=== PATIENT | female | born 1930 | race Caucasian/White ===

== ENCOUNTER 2016-12-30 10:32 | Emergency (ER) | payer MEDICARE, OTHER, MEDICAID ==
[2016-12-30 11:03] LABS: #Lymphocytes 0.5 thou/uL (1.20-3.40); #Monocytes 0.3 thou/uL (0.11-0.59); %Basophils 1.2 % (0.0-1.0); %Eosinophils 0.4 % (0.0-10.0); %Lymphocytes 12.1 % (21.0-51.0); %Monocytes 8.6 % (0.0-10.0); %Neutrophils 77.7 % (42.0-75.0); Hemoglobin 14.4 g/dL (12.0-16.0); Mean Corpuscular HGB CONC 33.3 g/dL (32.0-36.0); Mean Corpuscular Hemoglobin 33.6 pg (27.0-31.0); Mean Platelet Volume 8.2 fL (7.4-10.4); Platelet Count 194 thou/uL (130-400); RBC Distribution Width 12.4 % (11.5-14.5); Red Blood Cell (RBC) Count 4.28 mill/uL (4.20-5.40); White Blood Cell (WBC) Count 3.9 thou/uL (4.8-10.8)
[2016-12-30 11:07] LABS: INR-International Normal Ratio 1.1; PTT 33.7 SEC (22.9-36.1); Prothrombin Time 14.1 SEC (12.0-14.7)
[2016-12-30 11:15] LABS: ALT (SGPT) 21 U/L (8-55); AST (SGOT) 28 U/L (5-34); Albumin 4.5 g/dL (3.4-4.8); Alkaline Phosphatase 52 U/L (40-150); Anion Gap 18 mmol/L (10-20); BUN (Urea Nitrogen) 19 mg/dL (9.8-20.1); Bilirubin, Total 0.9 mg/dL (0.2-1.2); CK (CPK) 54 U/L (29-168); Calc. Creatinine Clearance 0 mL/min (70-130); Calcium 10.1 mg/dL (7.8-10.44); Carbon Dioxide 27 mmol/L (23-31); Chloride 100 mmol/L (98-107); Estimated GFR-MDRD 44; Globulin 3.1 g/dL (2.4-3.5); Glucose 119 mg/dL (83-110); Lipase 9 U/L (8-78); Potassium 4.2 mmol/L (3.5-5.1); Protein, Total 7.6 g/dL (6.0-8.3); Sodium 141 mmol/L (136-145)
[2016-12-30 11:28] LABS: Blood, Urine Negative (Negative); Clarity Slightly Cloudy (Clear); Glucose, Urine (Dipstick) Negative (Negative); Leukocyte Negative (Negative); Nitrite Negative (Negative); Protein, Urine (Dipstick) 100 mg/dL (Neg-Trace); Specific Gravity, Urine 1.025 (1.005-1.030)
[2016-12-30 11:30] LABS: Bilirubin Negative (Negative)
[2016-12-30 11:39] LABS: Bacteria/HPF 1+ HPF (None Seen); Crystals/HPF 1+ AMORPH PHOS HPF (Negative); RBC/HPF None Seen HPF (0-3); Squamous Epithelial 0-3 HPF (0-3); WBC/HPF 0-3 HPF (0-3)
[2016-12-30 13:37] LABS: Troponin I Less than 0.010 ng/mL (< 0.028)
--- NOTE | 2016-12-30 21:23 | RAD ---
PORTABLE CHEST: Date: 12-30-16 An AP portable film at 1048 is compared with a 12-02-16 study. FINDINGS: The heart is normal in size. There is no vascular congestion, edema, or pleural effusion. An area of slightly increased density just above and lateral to the right hilum is thought to be due to overla pping of lung markings and rib. There was nothing in this location last month. The trachea deviates slightly towards to the right due to the calcified aortic arch. The arch does not appear particularl y large. There is deformity and superior subluxation of the right humeral head, a chronic finding in this patient. Similar changes appear to be present on the left as well. IMPRESSION: Chronic changes but no acute finding. POS: HOME
== END 2016-12-30 14:07 | disposition home or self-care (01) ==
LOC: BURERS 10:32
DX: E86.0 Dehydration (principal); R11.2 Nausea with vomiting, unspecified; M06.9 Rheumatoid arthritis, unspecified; J44.9 Chronic obstructive pulmonary disease, unspecified; E78.5 Hyperlipidemia, unspecified; E78.00 Pure hypercholesterolemia, unspecified; I10 Essential (primary) hypertension; I35.0 Nonrheumatic aortic (valve) stenosis; F32.9 Major depressive disorder, single episode, unspecified; Z87.891 Personal history of nicotine dependence; Z79.82 Long term (current) use of aspirin; Z79.899 Other long term (current) drug therapy
CPT/HCPCS: 36416; 51701; 71010; 80053; 81003; 81015; 82550; 82553; 83690; 84484; 85025; 85610; 85730; 87086; 93005; 94760; 96361; 96374; A4353

== ENCOUNTER 2017-01-15 16:32 | Outpatient (CLI) | payer MEDICARE, OTHER ==
[2017-01-15 17:42] LABS: Hemoglobin A1c 5.2 % (4.0-6.0)
[2017-01-16 18:47] LABS: Creatinine, Urine 124.5 mg/dL (47-110); Microalbumin Urine 10.5 mg/dL (0.5-50.0); Microalbumin/Creat Ratio 84.3 mg/g (Less than 30)
== END 2017-01-15 16:33 | disposition home or self-care (01) ==
LOC: HPCALD 16:32
PROVIDERS: ATTEND Family Medicine
DX: E11.22 Type 2 diabetes mellitus with diabetic chronic kidney disease (principal); N18.3 Chronic kidney disease, stage 3 (moderate)
CPT/HCPCS: 36415; 82043; 82306; 83036; 83970; 84100

== ENCOUNTER 2017-11-10 12:29 | Outpatient (CLI) | payer MEDICARE, OTHER ==
--- NOTE | 2017-11-10 20:44 | RAD ---
CHEST 2 VIEWS: Date: 11/10/17 Comparison made with the 12/30/16 study. FINDINGS: The heart is normal in size. There are no congestive changes or pleural effusions. The lungs are hype rexpanded, consistent with the clinical diagnosis of COPD. While there is no major lobar infiltrate, some of the basilar lung markings are perhaps a little more prominent today than before. The finding is equivocal at this time as to its significance. Calcification is seen in the aortic arch. Deformity of each humeral head and superior subluxation of each humeral head is present as before. IMPRESSION: COPD with equivocal prominence of some of the basilar markings. This may or may not be significant. POS: HOME
== END 2017-11-10 12:30 | disposition home or self-care (01) ==
LOC: BURRAD 12:29
PROVIDERS: ATTEND Family Medicine
DX: J44.1 Chronic obstructive pulmonary disease with (acute) exacerbation (principal)
CPT/HCPCS: 71046

== ENCOUNTER 2018-01-08 13:10 | Emergency (ER) | payer MEDICARE, OTHER ==
[2018-01-08] MEDS ORDERED: HYDROcodone/Acetaminophen 5/325 mg Tablet ONE (13:33)
[2018-01-08 14:30] LABS: #Lymphocytes 0.5 thou/uL (1.20-3.40); #Monocytes 0.4 thou/uL (0.11-0.59); %Basophils 0.5 % (0.0-1.0); %Eosinophils 0.4 % (0.0-10.0); %Lymphocytes 7.6 % (21.0-51.0); %Monocytes 6.7 % (0.0-10.0); %Neutrophils 84.8 % (42.0-75.0); Hemoglobin 11.4 g/dL (12.0-16.0); Mean Corpuscular HGB CONC 35.1 g/dL (32.0-36.0); Mean Corpuscular Hemoglobin 31.8 pg (27.0-31.0); Mean Corpuscular Volume 90.5 fL (78.0-98.0); Mean Platelet Volume 6.5 fL (7.4-10.4); Platelet Count 159 thou/uL (130-400); RBC Distribution Width 13.2 % (11.5-14.5); Red Blood Cell (RBC) Count 3.58 mill/uL (4.20-5.40); White Blood Cell (WBC) Count 5.9 thou/uL (4.8-10.8)
[2018-01-08 14:40] LABS: ALT (SGPT) 15 U/L (8-55); AST (SGOT) 27 U/L (5-34); Albumin 4.4 g/dL (3.4-4.8); Alkaline Phosphatase 38 U/L (40-150); Anion Gap 16 mmol/L (10-20); BUN (Urea Nitrogen) 39 mg/dL (9.8-20.1); Bilirubin, Total 0.9 mg/dL (0.2-1.2); Calc. Creatinine Clearance 0 mL/min (70-130); Calcium 10.3 mg/dL (7.8-10.44); Carbon Dioxide 26 mmol/L (23-31); Chloride 101 mmol/L (98-107); Estimated GFR-MDRD 26; Globulin 2.9 g/dL (2.4-3.5); Glucose 140 mg/dL (83-110); Potassium 4.8 mmol/L (3.5-5.1); Protein, Total 7.3 g/dL (6.0-8.3); Sodium 138 mmol/L (136-145)
--- NOTE | 2018-01-08 20:56 | RAD ---
RIGHT HUMERUS TWO VIEWS: 01/08/18 An oblique fracture is seen through the upper humeral shaft with displacement of the fracture fragmen ts. Severe degenerative changes are suggested at the shoulder, but the glenohumeral joint is not real ly well evaluated on this study. IMPRESSION: Humeral shaft fracture. POS: HOME
== END 2018-01-08 17:44 | disposition short-term general hospital (02) ==
LOC: BURERS 13:10
DX: S42.341A Displaced spiral fracture of shaft of humerus, right arm, initial encounter for closed fracture (principal); F32.9 Major depressive disorder, single episode, unspecified; J44.9 Chronic obstructive pulmonary disease, unspecified; E78.5 Hyperlipidemia, unspecified; M06.9 Rheumatoid arthritis, unspecified; I10 Essential (primary) hypertension; Z87.891 Personal history of nicotine dependence; Z79.82 Long term (current) use of aspirin; Z79.899 Other long term (current) drug therapy; W17.89XA Other fall from one level to another, initial encounter
CPT/HCPCS: 80053; 85025; 94760